=== PATIENT | female | born 1980 | race Caucasian/White ===

== ENCOUNTER → 2017-09-02 | Outpatient (CLI) | payer OTHER ==
[2016-11-01 08:51] VITALS: BMI 31.9
[~2017-09-02] MED LIST: AMOX-559 PO; CALC-852 PO; CEPH500C24 PO; CHOL200038 PO; DULO30CA6 PO; DULO60CA56 PO; FERR240T18 PO; HYDR-4308 PO; HYDR-4309 PO; IBUP800T37 PO; IRON150C19 PO; IRON1TAB PO; LOR5/325 PO; MECO10002; MULT-1335 PO; NPH,100V12 SQ; ONDA4TAB PO; PEDI1TAB55; PER PO; PREN-127 PO; PROT480P2 PO; VITA150T2 PO
[2017-09-02 17:20] LABS: PLATELET COUNT, AUTOMATED 478 K/uL (150-450)
--- NOTE | 2017-09-02 19:21 | RADIOLOGY IMAGING REPORT ---
FACILITY: [facility] - [place] PATIENT NAME: Anushka Shukla : 1980 MR: [id number] V: [id number] EXAM DATE: ORDERING PHYSICIAN: KIMBERLEY YE TECHNOLOGIST: Location: [facility] [place] Patient: Anushka Shukla : 1980 Visit/Account:[id number] Date of Sevice: 09/02/2017 EXAMINATION: Chest 2 Views HISTORY: Cough. Crackles at right lung base. COMPARISON: None. FINDINGS: The lungs are clear. No focal consolidation or pleural fluid. No pneumothorax. Normal cardiomedias tinal silhouette, with normal heart size and pulmonary vascularity. Visualized osseous structures ar e unremarkable. IMPRESSION: Negative chest. Report Dictated By: Stanley Helton MD at 09/02/2017 7:16 PM Report E-Signed By: Stanley Helton MD at 09/02/2017 7:17 PM WSN:[id number]
== END ==
LOC: LAB 16:53
PROVIDERS: ATTEND Nurse Practitioner Family
DX: F32.9 Major depressive disorder, single episode, unspecified (principal); F41.9 Anxiety disorder, unspecified; R53.83 Other fatigue; Z98.84 Bariatric surgery status
CPT/HCPCS: 36415; 71046; 82040; 82247; 82306; 82310; 82374; 82435; 82565; 82607; 82728; 82746; 82947; 83540; 83550; 83735; 84075; 84132; 84155; 84295; 84425; 84443; 84450; 84460; 84520; 85025

== ENCOUNTER → 2017-11-07 | Outpatient (CLI) | payer OTHER ==
[2016-11-01 08:51] VITALS: BMI 31.9
[~2017-11-07] MED LIST changes: +CYCL-277 PO; +ESCI10TA8 PO; +METH4TAB66 PO
[2017-11-07 14:17] LABS: PLATELET COUNT, AUTOMATED 304 K/uL (150-450)
== END ==
LOC: LAB 14:02
PROVIDERS: ATTEND Nurse Practitioner Family
DX: D64.9 Anemia, unspecified (principal); E61.1 Iron deficiency; E53.8 Deficiency of other specified B group vitamins; E55.9 Vitamin D deficiency, unspecified; E51.9 Thiamine deficiency, unspecified
CPT/HCPCS: 36415; 82306; 82607; 82728; 82746; 83540; 83550; 84425; 85025

== ENCOUNTER 2018-05-11 04:41 | Emergency (ER) | payer OTHER ==
[2016-11-01 08:51] VITALS: Wt 61.2 kg
[~2018-05-11 04:41] MED LIST changes: +BUPR-147 PO; -HYDR-4308 PO; -HYDR-4309 PO; +HYDR-653 PO; +HYDR-654 PO
[2018-05-11 04:44] VITALS: BP 128/86
--- NOTE | 2018-05-11 04:49 | ER Report ---
History and Physical Time Seen By : 04:51 Hx. of Stated Complaint: has a tooth infection on rt side. stasrted antibiotics yeaterday, went to bed, woke up swollen on rt side, extremely painful HPI/ROS CHIEF COMPLAINT: Right facial swelling, possible allergic reaction HISTORY OF PRESENT ILLNESS: This is a 37-year-old female. She was seen at the dentist's office yesterday and diagnosed with a dental infection. Started on amoxicillin 500 mg 3 times a day for 10 days. She will then make an appointment to have the tooth removed. This morning she woke up with increased swelling on the right side of her face with increased pain. She did take a Valium last night to see if this would help her sleep. She is also taking ibuprofen 800 mg 3 times a day. She was concerned this might be a allergic reaction to the antibiotic. She has been having a little bit of foul tasting drainage yesterday but not somewhat this morning. She denies any trouble breathing or swallowing. No rashes or itching. She has had cold symptoms recently with some increased stuffy nose and scratchy throat. No fevers. Allergies: Coded Allergies: No Known Drug Allergies (Unverified , 05/11/18) Home Meds Active Scripts Prednisone (PREDNISONE) 20 Mg Tablet, 40 MG PO QDAY, #6 TAB 0 Refills Prov:JOHNSON GILLETTE MD 05/11/18 Hydrocodone Bit/Acetaminophen (HYDROCODON-ACETAMINOPHEN 5-325) 1 Each Tablet, 1 EACH PO Q4H PRN for PAIN, #12 TAB 0 Refills Prov:JOHNSON GILLETTE MD 05/11/18 Bupropion Hcl (BUPROPION HCL) 75 Mg Tablet, 1 TAB PO BID, #60 TAB 1 Refill Prov:KIMBERLEY YE APRN-C 01/19/18 Escitalopram Oxalate (ESCITALOPRAM OXALATE) 10 Mg Tablet, 1 TAB PO QDAY, #90 TAB 1 Refill Prov:KIMBERLEY YE APRN-Demian 01/19/18 Cyclobenzaprine Hcl (CYCLOBENZAPRINE HCL) 5 Mg Tablet, 1-2 TAB PO TID PRN for MUSCLE SPASMS, #15 TAB 0 Refills Prov:KIMBERLEY YE APRNC 09/23/17 Reported Medications Cholecalciferol (Vitamin D3) (VITAMIN D3) 2,000 Unit Tablet, 2000 UNIT PO DAILY 09/02/17 Vitamin B Complex & Vit C No.4 (SUPER B COMPLEX) 150 Mg Tablet, 150 MG PO 09/02/17 Calcium Carbonate/Vitamin D3 (CALCIUM + VITAMIN D TABLET) 1 Each Tablet, 1 EACH PO 09/02/17 Ferrous Gluconate (FERROUS GLUCONATE) Unknown Strength Tablet, PO 09/02/17 Protein Supplement (PROTEIN POWDER) 454 Gm Powder, 60 GM PO 10/31/16 Multivitamin With Minerals (MULTIPLE VITAMIN) 1 Each Tablet, 1 EACH PO DAILY, TAB 10/14/16 Reviewed Nurses Notes: Yes Hx Smoking: No Smoking Status: Never Smoker Exposure to Second Hand Smoke?: No Hx Substance Use Disorder: No Hx Alcohol Use: No Constitutional Vital Sign - Last 24 Hours 05/11/18 04:44 Temp 98.7 Pulse 58 Resp 14 B/P (MAP) 128/86 Pulse Ox 96 Physical Exam General Appearance: Alert, no acute distress, but some anxiousness given the symptoms and swelling. Eyes: Pupils equal and round no injection. ENT: She does have dental caries and it looks like there is a little drainage in the right upper first molar. There is some surrounding redness of the gums but nothing that looks like Pointing abscess or bulging. Moist mucous membranes. Normal posterior oropharynx. She does have the swelling around the right cheek with pain with palpating over the right maxillary area. No pain in the jaw or throat. Normal nasal mucosa other than slight erythema. Neck: Neck is supple and non tender. Respiratory: Lungs are clear to auscultation. Cardiac: regular rate and rhythm Skin: No rashes or lesions. DIFFERENTIAL DIAGNOSIS: After history and physical exam differential diagnosis was considered for dental infection with increasing swelling Medical Decision Making ED Course/Re-evaluation ED Course No sign of allergic reaction, reassured the patient that she can take her amoxicillin. She is only had one dose yesterday, not enough to make a diffe rence. I would like to add Rocephin 1 g IM at this time and we will add some prednisone as well to help with swelling. I will also give Lortab to help with pain. I did advise her to go ahead and give the dentist office a call as well to arrange follow-up visit. She will be off work today as well. Decision to Disposition Date: May 11, 2018 Decision to Disposition Time: 05:02 Depart Departure Latest Vital Signs Vital Signs Date Time Temp Pulse Resp B/P (MAP) Pulse Ox O2 Delivery O2 Flow Rate FiO2 05/11/18 04:44 98.7 58 14 128/86 96 Impression: Primary Impression: Dental infection Additional Impression: Dental caries Condition: Improved Disposition: HOME OR SELF-CARE Referrals: KIMBERLEY YE APRN [employer]UFA[employer]ING DEVELOPMENT ENGINEER-C (PCP) New Scripts Prednisone (PREDNISONE) 20 Mg Tablet 40 MG PO QDAY, #6 TAB 0 Refills Prov: JOHNSON GILLETTE MD 05/11/18 Hydrocodone Bit/Acetaminophen (HYDROCODON-ACETAMINOPHEN 5-325) 1 Each Tablet 1 EACH PO Q4H PRN for PAIN, #12 TAB 0 Refills Prov: JOHNSON GILLETTE MD 05/11/18 Patient Instructions: Dental Abscess (ED), Dental Caries (ED) Additional Instructions: No sign of an abscess on exam today, but lots of swelling from the dental infection. This does not look like an allergic reaction to the antibiotic. Keep taking your Amoxicillin. We have given you and injection of another antibi otic to add to the amoxicillin. Keep taking the Ibuprofen to help decrease inflammation. We will add in Lortab 5/325, one every 4 hours to help with the pain. Apply ice to help decrease the swelling. Problem Qualifiers JOHNSON GILLETTE MD May 11, 2018 04:49
[2018-05-11] MEDS ORDERED: predniSONE 20 MG TAB PO ONE (05:05)
[2018-05-11] MEDS ORDERED: APAP/HYDROCODONE 325/5 TAB PO ONE (05:05)
[2018-05-11] MEDS ORDERED: LIDOCAINE 1% MDV 200 MG/20 ML INJ ONE (05:05)
[2018-05-11] MEDS ORDERED: LOR5/325 PO (05:05)
[2018-05-11] MEDS ORDERED: cefTRIAXone 1 GM VIAL IM ONE (05:05)
[2018-05-11] MEDS ORDERED: ACET/HYDROC 5/325MG TH ER ONLY 2 TAB/BOTTLE PO ONE (05:05)
[2018-05-11] MEDS ORDERED: PRED20TA6 PO (05:08)
== END 2018-05-11 05:15 | disposition home or self-care (01) ==
LOC: ER 05:08
DX: K04.7 Periapical abscess without sinus (principal); K02.9 Dental caries, unspecified
CPT/HCPCS: 96372; 99284; J0696; J2001; J7512; 99283